=== PATIENT | female | born 1965 | race Caucasian/White ===

== ENCOUNTER 2021-12-20 14:53 | Emergency (ER) | payer BC ==
[~2021-12-20] VITALS: Ht 165.1 cm; Wt 68.0 kg
--- NOTE | 2021-12-20 16:24 | RAD ---
Single AP view of the chest. Comparison: None. Indication: Altered mental status Findings: The heart is not enlarged. There is no pneumothorax or effusion. No air space or interstitial diseas e. Impression: 1. No acute cardiopulmonary process. Electronically signed by: Bj Logan MD (12/20/2021 4:21 PM) [facility]
[2021-12-20 16:46] LABS: BASO % 1 % (0-3); EOS % 0 % (0-3); HEMATOCRIT 41.2 % (36.0-47.0); LYMPH # 1.6 x10^3/uL (1.0-4.8); LYMPH % 23 % (24-48); MEAN CORPUSCULAR HEMOGLOBIN 30 pg (25-35); MEAN CORPUSCULAR HGB CONC 34 g/dL (31-37); MEAN CORPUSCULAR VOLUME 88 fL (79-100); MONO # 0.4 x10^3/uL (0.0-1.1); MONO % 5 % (0-9); NEUT # 4.9 x10^3/uL (1.8-7.7); NEUT % 71 % (31-73); PLATELET COUNT 225 x10^3/uL (140-400); RED CELL DISTRIBUTION WIDTH 13.3 % (11.5-14.5); WHITE BLOOD COUNT 6.9 x10^3/uL (4.0-11.0)
[2021-12-20 16:59] LABS: PROTHROMBIN TIME PATIENT 12.7 SEC (11.7-14.0)
[2021-12-20 17:35] LABS: CALCIUM 9.7 mg/dL (8.5-10.1); CREATININE 0.7 mg/dL (0.6-1.0); GFR 86.2
[2021-12-20] MEDS ORDERED: IOHEXOL 350 MG/ML 100 ML VIAL. IV ONE (17:45)
[2021-12-20] MEDS ORDERED: CONTRAST GIVEN. MC PRN (17:45)
--- NOTE | 2021-12-20 18:09 | PHYS DOC ---
Past Medical History Past Surgical History: Smoking Status: Never Smoker Alcohol Use: None General Adult EDM: Chief Complaint: HEADACHE HPI: HPI: Patient is a 56-year-old female presents to the emergency department stating she was sent here by her primary care physician's office to have an emergent CT scan of her head. Patient reports difficulty gathering her thoughts for the past 2 years. Patient's at bedside reports patient has difficulty formulating her thoughts over the past 18 months to 2 years, reports primary care physician Dr. Diaz started her on blood pressure medications related to hypertensive presentation in office approximately 18 months ago and no further work-up has been initiated. Patient reports she takes her medications as prescribed, had noticed intermittent right upper eyelid drooping over the past 2 or more months. Had gone to see an eye doctor today who was concerned she may be having a stroke and sent her back to her primary care physician's office for further evaluation whom then sent her to the emergency department for further evaluation. Patient denies headaches, dizziness, syncopal or near syncopal episodes, denies visual disturbances, denies difficulty ambulating or feeling off balance. Patient denies chest pains, chest or nasal congestion, denies other physical complaints or physical concerns. Patient's reports symptoms have not worsened over the past 2 years nor have they resolved. Review of Systems: Review of Systems: 14 body systems of review of systems have been reviewed. See HPI for pertinent positives and negative responses, otherwise all other systems are negative, nonpertinent or noncontributory. Constitutional: Negative except as outlined in HPI above. Skin: Negative except as outlined in HPI above. Eyes: Negative except as outlined in HPI above. HENT: Negative except as outlined in HPI above. Respiratory: Negative except as outlined in HPI above. Cardiovascular: Negative except as outlined in HPI above. GI: Negative except as outlined in HPI above. : Negative except as outlined in HPI above. Musculoskeletal: Negative except as outlined in HPI above. Integument: Negative except as outlined in HPI above. Neurologic: Negative except as outlined in HPI above. Endocrine: Negative except as outlined in HPI above. Lymphatic: Negative except as outlined in HPI above. Psychiatric: Negative except as outlined in HPI above. Heart Score: C/O Chest Pain: No Risk Factors: Risk Factors: DM, Current or recent (<one month) smoker, HTN, HLP, family history of CAD, obesity. Risk Scores: Score 0 - 3: 2.5% MACE over next 6 weeks - Discharge Home Score 4 - 6: 20.3% MACE over next 6 weeks - Admit for Clinical Observation Score 7 - 10: 72.7% MACE over next 6 weeks - Early Invasive Strategies Current Medications: Current Medications Medications (Trade) Dose Ordered Sig/Sloane Start Time Stop Time Status Last Admin Dose Admin Info (CONTRAST GIVEN -- Rx MONITORING) 1 each PRN DAILY PRN 12/20/21 17:45 12/22/21 17:44 Iohexol (Omnipaque 350 Mg/ml) 75 ml 1X ONCE 12/20/21 17:45 12/20/21 17:46 DC 12/20/21 17:49 75 ML Allergies: Allergies: Allergies Coded Allergies Type Severity Reaction Last Updated Verified No Known Drug Allergies 12/20/21 No Physical Exam: PE: Constitutional: Well developed, well nourished, no acute distress, non-toxic appearance. 56-year-old female in no apparent distress. HENT: Normocephalic, atraumatic. Eyes: Conjunctiva normal, no discharge. Neck: Normal range of motion, no stridor. Cardiovascular: No cyanosis appreciated, distal cap refill less than 2 seconds. Lungs & Thorax: Patient is in no respiratory distress, no audible adventitious lung sounds appreciated. Abdomen: Nontender, no abnormalities noted. Skin: Warm, dry, no erythema, no rash. Back: No tenderness, no deformities. Extremities: No tenderness, no cyanosis, no clubbing, ROM intact, no edema. Neurologic: Alert and oriented X 3, normal motor function, normal sensory function, no focal deficits noted. Psychologic: Affect normal, judgement normal, mood normal. Current Patient Data: Labs: Laboratory Tests Test 12/20/21 16:25 12/20/21 17:17 White Blood Count 6.9 x10^3/uL (4.0-11.0) Red Blood Count 4.70 x10^6/uL (3.50-5.40) Hemoglobin 14.0 g/dL (12.0-15.5) Hematocrit 41.2 % (36.0-47.0) Mean Corpuscular Volume 88 fL (79-100) Mean Corpuscular Hemoglobin 30 pg (25-35) Mean Corpuscular Hemoglobin Concent 34 g/dL (31-37) Red Cell Distribution Width 13.3 % (11.5-14.5) Platelet Count 225 x10^3/uL (140-400) Neutrophils (%) (Auto) 71 % (31-73) Lymphocytes (%) (Auto) 23 % (24-48) L Monocytes (%) (Auto) 5 % (0-9) Eosinophils (%) (Auto) 0 % (0-3) Basophils (%) (Auto) 1 % (0-3) Neutrophils # (Auto) 4.9 x10^3/uL (1.8-7.7) Lymphocytes # (Auto) 1.6 x10^3/uL (1.0-4.8) Monocytes # (Auto) 0.4 x10^3/uL (0.0-1.1) Eosinophils # (Auto) 0.0 x10^3/uL (0.0-0.7) Basophils # (Auto) 0.0 x10^3/uL (0.0-0.2) Prothrombin Time 12.7 SEC (11.7-14.0) Prothrombin Time INR 1.0 (0.8-1.1) Activated Partial Thromboplast Time 30 SEC (24-38) Sodium Level 140 mmol/L (136-145) Potassium Level 4.0 mmol/L (3.5-5.1) Chloride Level 102 mmol/L (98-107) Carbon Dioxide Level 31 mmol/L (21-32) Anion Gap 7 (6-14) Blood Urea Nitrogen 11 mg/dL (7-20) Creatinine 0.7 mg/dL (0.6-1.0) Estimated GFR (Cockcroft-Gault) 86.2 Glucose Level 94 mg/dL (70-99) Calcium Level 9.7 mg/dL (8.5-10.1) Troponin I High Sensitivity < 4 ng/L (4-50) L Laboratory Tests 12/20/21 16:25 Laboratory Tests 12/20/21 17:17 Vital Signs: Vital Signs Date Time Temp Pulse Resp B/P (MAP) Pulse Ox O2 Delivery O2 Flow Rate FiO2 12/20/21 18:04 78 16 121/74 (90) 99 Room Air 12/20/21 15:08 98.6 98.6 EKG: EKG: EKG performed at 1611 by ED nursing staff shows a normal sinus rhythm with an occasional PVC, otherwise no other ectopy noted, heart rate 70 bpm, AK interval point 120, QTc interval 0.471, no acute STEMI, no ACS, no acute ischemia appreciated, EKG interpreted by ED attending physician Dr. Frankel. Radiology/Procedures: Radiology/Procedures: REASON: Expressive aphasia altered mental PROCEDURE: CT HEAD WO CONTRAST CT HEAD INDICATION: Expressive aphasia altered mental COMPARISON: None Available. Exposure: One or more of the following individualized dose reduction techniques were utilized for this examination: 1. Automated exposure control 2. Adjustment of the mA and/or kV according to patient size 3. Use of iterative reconstruction technique TECHNIQUE: 5 mm contiguous axial images were obtained from the skull base to the vertex in both bone and soft tissue algorithm. FINDINGS: No abnormal attenuation within the brain parenchyma. No evidence of acute intracranial hemorrhage. No extra-axial fluid collections. No mass effect or midline shift. Ventricular size is appropriate. Basal cisterns are patent. No fractures identified.Alcazar-white differentiation is preserved.Globes and o rbits are within normal limits. Paranasal sinuses and mastoid air cells are clear. IMPRESSION: No acute intracranial findings. FOR INTERNAL CODING PURPOSES Critical result: Findings discussed with ARNAZA SIMONS APRN at 12/20/2021 6:24 PM. RESULT CODE: (C) Electronically signed by: Patrick Mancini MD (12/20/2021 6:24 PM) [id number] REASON: Expressive aphasia altered mental PROCEDURE: CT ANGIOGRAPHY HEAD AND NECK EXAMINATION: CTA HEAD AND NECK W/WO CONTRAST CLINICAL HISTORY: Expressive aphasia, altered mental status. TECHNIQUE: Spiral high resolution axial images were obtained through the head, neck and superior mediastinum following bolus administration of intravenous contrast for CT angiography. 3D maximum intensity projection images also performed. CT Dose Reduction Employed: One or more of the following individualized dose reduction techniques were utilized for this examination: 1. Automated exposure control 2. Adjustment of the mA and/or kV according to patient size 3. Use of iterative reconstruction technique. COMPARISON: CT head same day FINDINGS: BRAIN: No evidence of acute ischemic stroke or intracranial hemorrhage. NECK: Soft Tissues: Unremarkable. Spine: Mild cervicothoracic degenerative changes. Lung Apices: Unremarkable. CT ARTERIOGRAM: Extracranial Circulation: Aortic Arch: Normal branching pattern from the aortic arch. No significant stenosis in the proximal brachiocephalic vessels. Carotid Stenosis: Right Common: No significant stenosis. Right Internal Carotid Plaque: No significant plaque formation. Right Internal Carotid Stenosis (% by NASCET Criteria): No significant stenosis. Left Common: No significant stenosis. Left Internal Carotid Plaque: No significant plaque formation. Left Internal Carotid Stenosis (% by NASCET Criteria): No significant stenosis. Cervical Vertebral Arteries: Patency: Bilateral Dominance: Codominant Intracranial Circulation: Anterior Circulation: No evidence of large vessel occlusion. Vertebrobasilar Circulation: No evidence of large vessel occlusion. IMPRESSION: No evidence of large vessel occlusion or significant carotid arterial stenosis. Electronically signed by: To Robledo DO (12/20/2021 6:30 PM) [facility] Course & Med Decision Making: Course & Med Decision Making Pertinent Labs and Imaging studies reviewed. (See chart for details) 56-year-old female, vital signs reviewed, presents emerged from concerning strokelike signs and symptoms for the past 18 months to 2 years. Patient ED presentation and physical examination are nonconcerning. Patient's ED NIHSS scale performed upon arrival equals 0. Patient does have noted delay in recalling some events however answers questions appropriately and accurately. Related to patient's presentation and explanation of events along with primary care physician's office concerns for stroke will order CT head without contrast CTA head and neck, CBC, BMP, PT/INR, PTT, twelve-lead EKG, portable chest x-ray, troponin high-sensitivity. The patient's labs are unremarkable, the patient's twelve-lead EKG is unremarkable, the patient's troponin I high-sensitivity is nonconcerning, CT head and CTA head and neck nonconcerning for acute process. Discussed lab findings and CT findings with patient, did offer admission to hospital for evaluation of symptoms by a neurologist and further management of symptoms. The patient and I made a joint decision to discharge to home as symptoms have not changed in over a year and 1/2 to 2 years, patient states she would rather follow-up with a neurologist in any outpatient testing rather than be admitted to the hospital. The patient continues to be alert and oriented x3, and nontoxic in appearance, in no apparent distress, there are no concerning findings of neurological deficits, discussed with patient strict follow-up with primary care, call tomorrow for an appointment to discuss today's events in the emergency department, will give information for neurologist to follow-up with, discussed strict return to ER precautions and concerns, patient gave verbal understanding of and is amenable to ED discharge planning. Discussed with the patient all findings and diagnostic testing as well as the need to follow-up with their primary care provider for further evaluation and treatment or return to the ED if any new or worsening symptoms. Strict return precautions were also discussed at length, the patient voiced understanding and agreement with the discharge planning. The patient was nontoxic in appearance, in no apparent distress, and hemodynamically stable at the time of disposition. Dragon Disclaimer: M86 Security Disclaimer: This electronic medical record was generated, in whole or in part, using a voice recognition dictation system. NIHSS Stroke Scale NIH Stroke Scale: NIH Stroke Scale Response (Comments) Value Level of Consciousness: 0 Alert/Responsive 0 LOC Questions: 0 Answers both correctly 0 LOC Commands: 0 Performs both tasks 0 Best Gaze: 0 Normal 0 Visual: 0 No visual loss 0 Facial Palsy: 0 Normal, symmetrical 0 Motor - Left Arm 0 No drift 0 Motor - Right Arm 0 No drift 0 Motor - Left Leg 0 No drift 0 Motor: Right Leg 0 No drift 0 Limb Ataxia: 0 Absent 0 Sensory: 0 No loss 0 Best Language: 0 Normal 0 Dysathria: 0 Normal 0 Extinction and Inattention: 0 Normal 0 Total 0 Departure Departure Impression: Primary Impression: Feared condition not demonstrated Disposition: 01 HOME / SELF CARE / HOMELESS Condition: GOOD Referrals: ELLIE FRANCES MD (PCP) ROBERT RAMIREZ MD Additional Instructions: You were seen today in the emergency department for evaluation of neurological symptoms that have been going on for several months. As we discussed, your EKG, blood lab work, chest x-ray, CT of head and neck were nonconcerning for acute process. As we discussed, please follow-up with a neurologist soon, I have recommended Dr. Hinton and given his information attached to this document, however you may see any neurologist of your choice. It is very important that you contact Dr. Diaz and let him know of your emergency room visit today and for ongoing recommendation of treatment and specialty management. Please return to the emergency department immediately for worsening symptoms or other concerns. Thank you for visiting our Emergency Department. It was a pleasure taking care of you today in the emergency department and we appreciate you trusting us with your care. If any additional problems come up don't hesitate to return to visit us. Please follow up with your primary care provider so they can plan additional care if needed and know about the problem that you had. If symptoms worsen come back to the Emergency Department. Any concerning symptoms that start such as chest pain, shortness of air, weakness or numbness on one side of the body, running high fevers or any other concerning symptoms return to the ER. EMERGENCY DEPARTMENT GENERAL DISCHARGE INSTRUCTIONS Thank you for coming to [facility] Emergency Department (ED) today and trusting us with you care. We trust that you had a positive experience in our Emergency Department. If you wish to speak to the department management, you may call the Director at [phone]. YOUR FOLLOW UP INSTRUCTIONS ARE FOLLOWS: 1. Do you have a private Doctor? If you do not have a private doctor, please ask for a resource list of physicians or clinics that may be able to assist you with follow up care. 2. The Emergency Physicain has interpreted your x-rays. The X-Ray specialist will also review them. If there is a change in the findings, you will be notified in 48 hours when at all possible. 3. A lab test or culture has been done, your results will be reviewed and you will be notified if you need a change in treatment. ADDITIONAL INSTRUCTIONS AND INFORMATION: 1. Your care today has been supervised by a physician who is specially trained in emergency care. Many problems require more than one evaluation for a complete diagnosis and treatment. We recommend that you schedule your follow up appointment as recommended to ensure complete treatment of you illness or injury. If you are unable to obtain follow up care and continue to have a problem, or if your condition worsens, we recommend that you return to the ED. 2. We are not able to safely determine your condition over the phone nor are we able to give sound medical advice over the phone. For these safety reasons, if you call for medical advice we will ask you to come to the ED for further evaluation. 3. If you have any questions regarding these discharge instructions please call the ED at [phone]. SAFETY INFORMATION: In the interest of safety, wellness, and injury prevention; we encourage you to wear your sealbelt, if you smoke; quite smoking, and we encourage family to use a protective helmet for bicycling and other sporting events that present an increased risk for head injury. IF YOUR SYMPTOMS WORSEN OR NEW SYMPTOMS DEVELOP, OR YOU HAVE CONCERNS ABOUT YOUR CONDITION; OR IF YOUR CONDITION WORSENS WHILE YOU ARE WAITING FOR YOUR FOLLOW UP APPOINTMENT; EITHER CONTACT YOUR PRIMARY CARE DOCTOR, THE PHYSICIAN WHOSE NAME AND NUMBER YOU WERE GIVEN, OR RETURN TO THE ED IMMEDIATELY. ARANZA SIMONS APRN Dec 20, 2021 18:09
--- NOTE | 2021-12-20 18:26 | RAD ---
CT HEAD INDICATION: Expressive aphasia altered mental COMPARISON: None Available. Exposure: One or more of the following individualized dose reduction techniques were utilized for thi s examination: 1. Automated exposure control 2. Adjustment of the mA and/or kV according to patient size 3. Use of iterative reconstruction technique TECHNIQUE: 5 mm contiguous axial images were obtained from the skull base to the vertex in both bone and soft tissue algorithm. FINDINGS: No abnormal attenuation within the brain parenchyma. No evidence of acute intracranial hemorrhage. No extra-axial fluid collections. No mass effect or midline shift. Ventricular size is appropriate. Basal cisterns are patent. No fractures identified.Alcazar-white differentiation is preserved.Globes and orbits are within normal l imits. Paranasal sinuses and mastoid air cells are clear. IMPRESSION: No acute intracranial findings. FOR INTERNAL CODING PURPOSES Critical result: Findings discussed with ARANZA SIMONS APRN at 12/20/2021 6:24 PM. RESULT CODE: (C) Electronically signed by: Patrick Mancini MD (12/20/2021 6:24 PM) [id number]
--- NOTE | 2021-12-20 18:32 | RAD ---
EXAMINATION: CTA HEAD AND NECK W/WO CONTRAST CLINICAL HISTORY: Expressive aphasia, altered mental status. TECHNIQUE: Spiral high resolution axial images were obtained through the head, neck and superior medi astinum following bolus administration of intravenous contrast for CT angiography. 3D maximum intensi ty projection images also performed. CT Dose Reduction Employed: One or more of the following individualized dose reduction techniques wer e utilized for this examination: 1. Automated exposure control 2. Adjustment of the mA and/or kV ac cording to patient size 3. Use of iterative reconstruction technique. COMPARISON: CT head same day FINDINGS: BRAIN: No evidence of acute ischemic stroke or intracranial hemorrhage. NECK: Soft Tissues: Unremarkable. Spine: Mild cervicothoracic degenerative changes. Lung Apices: Unremarkable. CT ARTERIOGRAM: Extracranial Circulation: Aortic Arch: Normal branching pattern from the aortic arch. No significant stenosis in the proximal b rachiocephalic vessels. Carotid Stenosis: Right Common: No significant stenosis. Right Internal Carotid Plaque: No significant plaque formation. Right Internal Carotid Stenosis (% by NASCET Criteria): No significant stenosis. Left Common: No significant stenosis. Left Internal Carotid Plaque: No significant plaque formation. Left Internal Carotid Stenosis (% by NASCET Criteria): No significant stenosis. Cervical Vertebral Arteries: Patency: Bilateral Dominance: Codominant Intracranial Circulation: Anterior Circulation: No evidence of large vessel occlusion. Vertebrobasilar Circulation: No evidence of large vessel occlusion. IMPRESSION: No evidence of large vessel occlusion or significant carotid arterial stenosis. Electronically signed by: To Robledo DO (12/20/2021 6:30 PM) [facility]
[2021-12-20 18:58] VITALS: BP 119/80
--- NOTE | 2021-12-20 19:04 | EKG ---
[facility] [address] [place] [address] Test Date: 2021-12-20 Test Time: 16:11:21 Pat Name: SELENA GREENE Department: Room: Gender: F Body Mechanic: : 1965 Requested By: ARANZA SIMONS Order Number: [id number] Reading MD: Measurements Intervals Noble Rate: 78 P: 40 PA: 120 QRS: 0 QRSD: 86 T: 31 QT: 410 QTc: 471 Interpretive Statements SINUS RHYTHM VENTRICULAR PREMATURE COMPLEX(ES) LEFTWARD AXIS LOW LIMB LEAD VOLTAGE ABNORMAL ECG RI6.02 No previous ECG available for comparison
== END 2021-12-20 19:26 | disposition home or self-care (01) ==
LOC: ER 14:53
DX: H02.401 Unspecified ptosis of right eyelid (principal); R51.9 Headache, unspecified; M54.2 Cervicalgia; Z71.1 Person with feared health complaint in whom no diagnosis is made
CPT/HCPCS: 36415; 70450; 70496; 70498; 71045; 80048; 84484; 85025; 85610; 85730; 93005; 99285; Q9967